=== PATIENT | male | born 1980 | race Two or more races ===

== ENCOUNTER 2020-05-31 11:54 | Emergency (ER) | payer OTHER ==
[2020-05-31 12:16] VITALS: BP 107/61; PULSE 62; TEMP 98; BMI 21.7
[2020-05-31] MEDS ORDERED: KETOROLAC TROMETHAMINE 30 MG/1 ML VIAL IM ONE (13:11)
[2020-05-31] MEDS ORDERED: KETOROLAC TROMETHAMINE 30 MG/1 ML VIAL ONE (13:13)
== END 2020-05-31 14:24 | disposition home or self-care (01) ==
LOC: JERFT 11:54
PROC: 3E0233Z Introduction of Anti-inflammatory into Muscle, Percutaneous Approach (ICD-10-PCS; principal; 2020-05-31)
DX: M25.561 Pain in right knee (principal)
CPT/HCPCS: 73562-TC-RT-FY; 99284-25